=== PATIENT | male | born 1960 | race Caucasian/White ===

== ENCOUNTER → 2016-09-27 | Outpatient (CLI) | payer BC ==
[~2016-09-27] MED LIST: ALPRAZOLAM0.5 MG PO; AMBIEN10 MG PO; ASPIRIN81 M2 PO; ATIVAN PO; BENICAR20 MG PO; CLARITIN10 M3 PO; COLACE PO; COUMADIN PO; DULCOLAX STOOL SOFT PO; ESCITALOPRAM OX10 MG PO; FLAGYL PO; FLEXERIL10 MG PO; FLONASE16 GM; GLUCOSAMINE PO; HYDROCODON-ACE1 EAC7 PO; IBUPROFEN PO; LEVAQUIN PO; LISINOPRIL; LISINOPRIL PO; LORTAB 7.5-5001 TAB PO; MOTRIN400 MG PO; OMNICEF300 M1 PO; PRAVACHOL20 MG PO; PROTONIX PO; PROZAC; PROZAC PO; ROBAXIN500 MG PO; ULTRAM PO; UROXATRAL10 MG PO; ZESTORETIC 20/11 TA1 PO; ZESTORETIC 20/11 TAB PO; ZESTORETIC PO; ZITHROMAX; ZYRTEC PO
--- NOTE | ~2016-09-27 | CR181 ---
[facility] A Service of [facility] & [facility] RADIOLOGY TEXT RESULTS PATIENT: GLADYS VILCHIS LOCATION: [facility] : 58 UNIT #: [id number] AGE: [address]: Jose Lan MD SEX: M ORDER DR: [id number] [facility] [address] [place], [place] [address] [id number] O MR#: [id number] Acc #: [id number] NAME: GLADYS VILCHIS. : 1960 SEX: M STUDY DATE/TIME: 09/27/2016 13:13 UNIT: [facility] ROOM: STUDY DESCRIPTION: CR Lumbar Spine 2 or 3 Views Attending Physician: Jose Lan M.D. Referring Physician: Jose Lan M.D. Ordering Physician: Jose Lan M.D. Primary Care Physician: Patrick Otto M.D. MEDICAL IMAGING REPORT This report is preliminary unless electronic signature is present EXAM Lumbar spine 3 views 09/27/2016 INDICATIONS 56-year-old male with history of elevated PSA and hot spots on recent nuclear medicine study. COMPARISON STUDIES Comparison with nuclear medicine study from the bone scan from same day. FINDINGS There is extensive facet degenerative changes within the lower lumbar spine. There is no evidence of any lytic or sclerotic lesion. Mild disc space narrowing at L5-S1. IMPRESSION Extensive facet degenerative changes. No lytic or sclerotic lesions are seen. Dictated by... Garth López M.D. THIS IS AN ELECTRONICALLY VERIFIED REPORT Garth López M.D. at 09/28/2016 5:07 PM CHARLES/huyen TD: 09/27/2016 18:47 JOB #: [id number] MEDICAL IMAGING REPORT COPY
--- NOTE | ~2016-09-27 | NM8 ---
[facility] A Service of [facility] RADIOLOGY TEXT RESULTS PATIENT: GLADYS VILCHIS LOCATION: [facility] : 58 UNIT #: [id number] AGE: [address]: Jose Lan MD SEX: M ORDER DR: [id number] [facility] [address] [place], [place] [address] [id number] O MR#: [id number] Acc #: [id number] NAME: GLADYS VILCHIS. : 1960 SEX: M STUDY DATE/TIME: 09/27/2016 13:20 UNIT: [facility] ROOM: STUDY DESCRIPTION: NM Bone or Joint Whole Body Attending Physician: Jose Lan M.D. Referring Physician: Jose Lan M.D. Ordering Physician: Jose Lan M.D. Primary Care Physician: Patrick Otto M.D. MEDICAL IMAGING REPORT This report is preliminary unless electronic signature is present EXAM Whole-body bone scan. 09/27/2016 HISTORY Elevated PSA level. Pain in lower back that started 6 months ago. Arthritis. Spinal stenosis. Back surgery 2 years ago. COMPARISON Lumbar spine series 09/27/2016. PA and lateral chest 07/01/2014. MRI lumbar spine 10/15/2014. FINDINGS Following the intravenous administration of 28 mCi technetium 99m DTPA in right antecubital fossa vein, delayed anterior and posterior planar images were obtained of the whole body, along with right and left lateral images of the cervical spine, bilateral oblique images of the ribs. No focal increased or diminished radiopharmaceutical uptake is seen in a fashion to suggest osseous metastatic disease. Mild uptake within the bilateral shoulder joints, sternoclavicular joints, knees (right greater left) and ankles in a fashion consistent with osteoarthritic change. There is also mild asymmetric uptake within the lower lumbar spine to the right of midline corresponding to advanced right L4-5 facet arthropathy, which can also be seen on previous plain film. IMPRESSION No evidence of osseous metastatic disease in the axial or appendicular skeleton. Degenerative pattern of uptake within the skeleton as described. Dictated by... Katelyn Spain M.D. THIS IS AN ELECTRONICALLY VERIFIED REPORT [facility] A Service of [facility] RADIOLOGY TEXT RESULTS PATIENT: GLADYS VILCHIS LOCATION: [facility] #: [id number] : 58 UNIT #: [id number] AGE: [address]: Jose Lan MD SEX: M ORDER DR: Katelyn Spain M.D. at 09/28/2016 10:07 PM WILLIAM/yogi TD: 09/28/2016 06:31 JOB #: [id number] MEDICAL IMAGING REPORT COPY
== END | disposition home or self-care (01) ==
LOC: CNUC 09:12
DX: R97.20 Elevated prostate specific antigen [PSA] (principal); M47.896 Other spondylosis, lumbar region
CPT/HCPCS: 72100; 78306; A9503

== ENCOUNTER → 2016-10-10 | Outpatient (CLI) | payer BC ==
--- NOTE | ~2016-10-10 | MR113 ---
[facility] A Service of [facility] RADIOLOGY TEXT RESULTS PATIENT: GLADYS VILCHIS LOCATION: [facility] : 58 UNIT #: [id number] AGE: [address]: Tony Love MD SEX: M ORDER DR: [id number] [place] [id number] O MR#: [id number] Acc #: [id number] NAME: GLADYS VILCHIS : 1960 SEX: M STUDY DATE/TIME: 10/10/2016 12:05 UNIT: [facility] ROOM: STUDY DESCRIPTION: MR Lumbar Wo Contrast Attending Physician: Tony Love M.D. Referring Physician: Tony Love M.D. Ordering Physician: Tony Love M.D. Primary Care Physician: Patrick Otto M.D. MRI CENTER REPORT This report is preliminary unless electronic signature is present. EXAM Lumbar MRI 10/10/2016 HISTORY Low back pain radiating to the left for the past 6 months. Previous history of surgery at L4-5. COMPARISON STUDIES Comparison scan 06/04/2014 TECHNIQUE Multiplanar imaging of the lumbar spine was performed with short and long TR. FINDINGS Alignment is satisfactory. At L1-L2 no abnormalities are seen. At L2-L3 there is a lateral disc herniation on the left. It narrows the entrance to the foramen. There is still a small amount of fat around the exiting nerve root. Since the previous examination the disc protrusion in the foramen on the left has worsened. At L3-4 the disc is desiccated. There is mild concentric disc bulging. Disc bulging is more prominent in the left foramen than in the right. Central stenosis is mild. Foraminal stenosis on the left is mild. This is unchanged from previous exam. The disc bulge contacts and displaces but does not compress the exiting root at L3-4 on the left. At L4-5 the disc is mildly degenerated. There is mild concentric disc bulging and moderate bilateral facet hypertrophy. Central stenosis is moderate. [facility] A Service of [facility] RADIOLOGY TEXT RESULTS PATIENT: GLADYS VILCHIS [id number] : 58 UNIT #: [id number] AGE: [address]: Tony Love MD SEX: M ORDER DR: At L5-S1 there is broad-based posterior disc bulging with osteophyte formation. It extends into the foramina bilaterally and is accompanied by mild to moderate bilateral facet hypertrophy. Foraminal stenosis is moderate bilaterally and greater on the left than on the right. This is also unchanged. The conus is normal. There is no evidence of marrow edema or paraspinous mass. IMPRESSION 1. Multilevel degenerative disc and facet disease as described above. Again noted is a lateral protruding disc at L2-3 on the left. It is more prominent than on the previous examination with more loss of fat around the exiting nerve root. 2. There is also asymmetric left-sided disc and osteophyte in the foramen at L3-4 but it is unchanged. Facet hypertrophy in the lower lumbar levels is also unchanged. 3. Since the previous examination laminectomy has been performed at L4-5. Central stenosis is significantly improved. No evidence of disc herniation at this level. Dictated by... Jose Cline M.D. THIS IS AN ELECTRONICALLY VERIFIED REPORT Jose Cline M.D. at 10/11/2016 3:45 PM Marty TD: 10/11/2016 15:24 JOB #: [id number] MRI CENTER REPORT Page 1 of 1
== END | disposition home or self-care (01) ==
LOC: SMRI 11:00
DX: M54.5 Low back pain (principal); M48.06 Spinal stenosis, lumbar region; M51.36 Other intervertebral disc degeneration, lumbar region; M51.26 Other intervertebral disc displacement, lumbar region; M25.78 Osteophyte, vertebrae; Z98.890 Other specified postprocedural states
CPT/HCPCS: 72148

== ENCOUNTER → 2017-01-09 | Outpatient (CLI) | payer BC ==
--- NOTE | ~2017-01-09 | CT2 ---
[facility] A Service of [facility] & [facility] RADIOLOGY TEXT RESULTS PATIENT: GLADYS VILCHIS [facility] : 58 UNIT #: [id number] AGE: [address]: Sal Rincon III, MD SEX: M ORDER DR: [id number] [facility] [address] [place], [place] [address] [id number] O MR#: [id number] [facility] #: [id number] NAME: GLADYS VILCHIS. : 1960 SEX: M STUDY DATE/TIME: 01/09/2017 9:02 UNIT: [facility] ROOM: STUDY DESCRIPTION: CT Abd and Pelv W Cont Attending Physician: Sal Rincon III, M.D. Referring Physician: Sal Rincon III, M.D. Ordering Physician: Sal Rincon III, M.D. Primary Care Physician: Patrick Otto M.D. MEDICAL IMAGING REPORT This report is preliminary unless electronic signature is present EXAM CT abdomen and pelvis. INDICATION Mid to right-sided abdominal pain for [address] TE[address] of the abdomen and pelvis with p.o. and IV contrast. Coronal and sagittal reconstructions were obtained. This CT exam was performed with one or more of the following radiation dose reduction techniques: automatic exposure control, adjustment of mA and/or kV according to patient size, and iterative reconstruction. COMPARISON CT abdomen and pelvis, 07/18/2008. FINDINGS ABDOMEN: Diffusely diminished attenuation of the hepatic parenchyma suggests background steatosis. There is no intrahepatic or extrahepatic biliary dilatation. The gallbladder is surgically absent. Pancreas, spleen, and adrenal glands are within normal limits. There is a partially exophytic enhancing mass off the mid left kidney measuring 3.4 x 3.2 x 3.4 cm. This has imaging appearance of a renal cell carcinoma. There are no enlarged retroperitoneal lymph nodes. The left renal vein is widely patent. The bowel is not dilated. There is extensive colonic diverticulosis, however, no diverticulitis. There has been prior anterior abdominal wall hernia repair with placement of some abdominal mesh. The appendix is normal. Patient has had prior sigmoid colon resection with subsequent reanastomosis. [facility]. [facility] A Service of [facility] & [facility] RADIOLOGY TEXT RESULTS PATIENT: GLADYS VILCHIS LOCATION: [facility] : 58 UNIT #: [id number] AGE: [address]: Sal Rincon III, MD SEX: M ORDER DR: The abdominal aorta is normal in caliber. PELVIS: No pelvic mass. No enlarged pelvic or inguinal lymph nodes. The prostate is mildly enlarged. There are 3 fiducial markers within the prostate. No suspicious osseous findings. There are degenerative changes in the lumbar spine and in the hips. IMPRESSION 1. No acute findings in the abdomen or pelvis to account for the patient's symptoms. 2. Partially exophytic mass off the mid left kidney measures 3.4 cm and has imaging appearance of a renal cell carcinoma. 3. Hepatic steatosis. 4. Colonic diverticulosis without evidence of diverticulitis. 5. The unexpected findings were called to the medical billing specialist Dr. Rincon at 14:38 on 01/09/2017. STAT * RESULT Dictated by... Brian Whaley M.D. THIS IS AN ELECTRONICALLY VERIFIED REPORT Brian Whaley M.D. at 01/09/2017 4:59 PM LANDY/leonor TD: 01/09/2017 14:50 JOB #: [id number] MEDICAL IMAGING REPORT Page 1 of 1 COPY
[2017-01-09 10:35] LABS: POC - CREATININE 0.88 mg/dL (0.64-1.27); POC - GFR >60.0 mL/min (>60)
== END | disposition home or self-care (01) ==
LOC: CCAT 01-07 09:20
PROVIDERS: Surgery
DX: R10.9 Unspecified abdominal pain (principal); N28.89 Other specified disorders of kidney and ureter; K57.30 Diverticulosis of large intestine without perforation or abscess without bleeding
CPT/HCPCS: 74177; 82565; Q9967

== ENCOUNTER → 2017-01-31 | Outpatient (CLI) | payer BC ==
--- NOTE | ~2017-01-31 | CT55 ---
[facility] A Service of [facility] RADIOLOGY TEXT RESULTS PATIENT: GLADYS VILCHIS LOCATION: [facility] : 58 UNIT #: [id number] AGE: [address]: EDGAR ADAMS JR MD SEX: M ORDER DR: [id number] [facility] [address] [place], [place] [address] [id number] O MR#: [id number] Acc #: [id number] NAME: GLADYS VILCHIS : 1960 SEX: M STUDY DATE/TIME: 01/31/2017 10:07 UNIT: [facility] ROOM: STUDY DESCRIPTION: CT Chest W Con Attending Physician: Edgar Adams M.D. Referring Physician: Edgar Adams M.D. Primary Care Physician: Patrick Otto M.D. MEDICAL IMAGING REPORT This report is preliminary unless electronic signature is present EXAM CT chest INDICATIONS Prostate cancer. Renal mass. Observation for metastatic disease. TECHNIQUE CT of the chest utilizing 100 mL Isovue-370 IV contrast. Coronal and sagittal reconstructions were obtained. This CT exam was performed with one or more of the following radiation dose reduction techniques: automatic exposure control, adjustment of mA and/or kV according to patient size, and iterative reconstruction. COMPARISON CT abdomen and pelvis 01/09/2017. FINDINGS No pathologically enlarged mediastinal or hilar lymph nodes. Thoracic aorta is normal caliber. No pericardial or pleural effusion. There is a small 3 mm pulmonary nodule in the right upper lobe. This is almost certainly benign given its small size. There is no focal consolidation. A second nodule in the superior segment left lower lobe also measures 3 mm and is likely benign. No acute osseous abnormalities. IMPRESSION There are a few small pulmonary nodules in the lungs; however, these are less than 3 mm in size. There are probably benign. They can be followed given the patient's clinical history. [facility] A Service of [facility] RADIOLOGY TEXT RESULTS PATIENT: GLADYS VILCHIS LOCATION: [facility] : 58 UNIT #: [id number] AGE: [address]: EDGAR ADAMS JR MD SEX: M ORDER DR: Dictated by... Brian Whaley M.D. THIS IS AN ELECTRONICALLY VERIFIED REPORT Brian Whaley M.D. at 02/03/2017 5:10 PM LANDY/theresa TD: 02/02/2017 09:47 JOB #: [id number] MEDICAL IMAGING REPORT Page 1 of 1 COPY
--- NOTE | ~2017-01-31 | CT69 ---
[facility] A Service of [facility] RADIOLOGY TEXT RESULTS PATIENT: GLADYS VILCHIS [facility] #: [id number] : 58 UNIT #: [id number] AGE: [address]: EDGAR ADAMS JR MD SEX: M ORDER DR: [id number] [facility] [address] [place], [place] [address] [id number] O MR#: [id number] Acc #: [id number] NAME: GLADYS VILCHIS. : 1960 SEX: M STUDY DATE/TIME: 01/31/2017 10:11 UNIT: [facility] ROOM: STUDY DESCRIPTION: CT Head W Contrast Attending Physician: Edgar Adams M.D. Referring Physician: Edgar Adams M.D. Primary Care Physician: Patrick Otto M.D. MEDICAL IMAGING REPORT This report is preliminary unless electronic signature is present EXAM Head CT with contrast date of study 01/31/2017. COMPARISON Brain MRI dated 03/02/2016 and 02/20/2016. PROCEDURE Axial contrast-enhanced head CT. This CT exam was performed with one or more of the following radiation dose reduction techniques: automatic exposure control, adjustment of mA and/or kV according to patient size, and iterative reconstruction. CLINICAL HISTORY History of prostate carcinoma and new renal mass. Observation for suspected metastatic malignancy. FINDINGS Known left frontal venous angioma is redemonstrated. There is otherwise no intracranial mass or abnormal enhancement. The extracranial soft tissues are normal. There is opacification of the right mastoid air cells and middle ear, but the skull base and calvaria are otherwise normal. IMPRESSION Negative contrast-enhanced head CT. No evidence of metastatic disease or other acute abnormality. Known venous angioma. Dictated by... Eliceo Sullivan M.D. THIS IS AN ELECTRONICALLY VERIFIED REPORT Eliceo Sullivan M.D. at 01/31/2017 5:04 PM MODESTO/lilian [facility] A Service of [facility] RADIOLOGY TEXT RESULTS PATIENT: GLADYS VILCHIS LOCATION: [facility] #: [id number] : 58 UNIT #: [id number] AGE: [address]: EDGAR ADAMS JR MD SEX: M ORDER DR: TD: 01/31/2017 12:57 JOB #: [id number] MEDICAL IMAGING REPORT Page 1 of 1 COPY
== END | disposition home or self-care (01) ==
LOC: CCAT 08:43
DX: R51 Headache (principal); N28.89 Other specified disorders of kidney and ureter; R91.8 Other nonspecific abnormal finding of lung field
CPT/HCPCS: 70460; 71260; Q9967